=== PATIENT | female | born 1960 | race Caucasian/White ===

== ENCOUNTER 2019-09-26 08:24 | Day surgery (SDC) | payer OTHER ==
[2019-09-26] MEDS ORDERED: Midazolam 1 MG/ML 2 ML SDV ONE (08:53)
[2019-09-26] MEDS ORDERED: fentaNYL 100 MCG/2 ML SDV ONE (08:53)
[2019-09-26] MEDS ORDERED: Propofol 200 MG/20 ML SDV ONE (08:54)
[2019-09-26] MEDS ORDERED: Dextrose 5%-Lactated Ringers 1,000 ML IV SCH (09:00)
--- NOTE | 2019-09-29 11:25 | OR ---
DATE OF PROCEDURE: 09/26/2019 SURGEON: Vignesh Brown MD PREOPERATIVE DIAGNOSIS: Indication for screening colonoscopy. POSTOPERATIVE DIAGNOSIS: Single flat/sessile polyp involving hepatic flexure colon. OPERATIVE PROCEDURE: Colonoscopy with: 1. Polypectomy by snare technique. 2. Injection of Li ink into small bowel submucosa to identify polypectomy site. ANESTHESIA: IV sedation. INDICATIONS FOR PROCEDURE: A 59-year-old female presenting for a screening colonoscopy. Plan is to proceed with a colonoscopy with biopsies and/or polypectomy as indicated. Potential risks of the procedure including bleeding and perforation were discussed, and the patient wishes to proceed. DETAILS OF PROCEDURE: The patient was taken to the operating room and placed in a left lateral decubitus position. IV sedation was administered, after which the initial digital rectal exam was performed and was unremarkable. Colonoscope was then passed eventually to the level of the cecum. The prep was fairly good with there only a small amount of liquid stool present. To that level, there were no diverticula and no areas of colitis. There was a single area of fairly sessile-appearing polyp located in the hepatic flexure. This was encircled and then taken in 2 pieces with cautery snare. Both pieces were collected and sent for histologic evaluation. The polypectomy site appeared to be not overly deep and adequate in terms of hemostasis. In the event this is a malignancy, 2 mL of Li Ink was then injected in the submucosa adjacent to the biopsy site for intraoperative confirmation of that location of the colon should resection be required. The scope was then withdrawn in remainder of the length of the colon and rectum with no additional pathology being identified and the procedure was then concluded. The patient was taken to the recovery room in satisfactory condition. Assuming this is an otherwise benign polyp, it appeared to be adequately excised, and in this case we would recommend a repeat colonoscopy in 2 years. Vignesh Brown MD /[id number]
== END 2019-09-26 11:55 | disposition home or self-care (01) ==
LOC: JP.SDS 08:24
PROVIDERS: ATTEND Surgery
DX: Z12.11 Encounter for screening for malignant neoplasm of colon (principal); D12.3 Benign neoplasm of transverse colon; Z87.891 Personal history of nicotine dependence
CPT/HCPCS: 45381; 45385; 88305; J2250; J2704; J3010; J7121

== ENCOUNTER 2021-07-06 18:17 | Emergency (ER) | payer OTHER ==
[2021-07-06] MEDS ORDERED: Bacitracin Oint 1 GM U/D Packet TOP ONE (18:29)
[2021-07-06] MEDS ORDERED: Diphtheria,Pertussis(Acell),Tetanus Vaccine 0.5 ML Syringe IM ONE (18:49)
--- NOTE | 2021-07-06 18:49 | EDM.PDOC ---
ED HPI GENERAL MEDICAL PROBLEM - General Chief Complaint: Laceration Stated Complaint: GASH IN FORHEAD Time Seen by Provider: 07/06/21 18:29 Source of Information: Reports: Patient History Limitations: Reports: No Limitations - History of Present Illness INITIAL COMMENTS - FREE TEXT/NARRATIVE: Frida is a 61-year-old female presenting to the ED for evaluation and treatment of a laceration to her forehead. Patient was helping her hang a deer when the mechanism failed causing the wench to strike her in the forehead resulting in the laceration. There was no loss of consciousness. - Related Data Allergies Allergy/AdvReac Type Severity Reaction Status Date / Time amoxicillin [Amoxicillin] Allergy Severe Anaphylactic Verified 07/06/21 18:33 Shock cephalexin [From Keflex] Allergy Rash Verified 07/06/21 18:33 naproxen sodium [From Aleve] Allergy Hives Verified 07/06/21 18:33 Past Medical History HEENT History: Reports: Impaired Vision Respiratory History: Reports: Bronchitis, Recurrent Gastrointestinal History: Reports: None Musculoskeletal History: Reports: Other (See Below) Other Musculoskeletal History: back spasms - takes flexeril - Infectious Disease History Infectious Disease History: Reports: Chicken Pox, Measles - Past Surgical History HEENT Surgical History: Reports: None Respiratory Surgical History: Reports: None GI Surgical History: Reports: Cholecystectomy, Colonoscopy Musculoskeletal Surgical History: Reports: Other (See Below) Other Musculoskeletal Surgeries/Procedures:: removed part of ulnar and has plate in right wrist Social & Family History - Family History Family Medical History: No Pertinent Family History - Caffeine Use Caffeine Use: Reports: Coffee Caffeine Use Comment: 8 cups/daily ED ROS GENERAL - Review of Systems Review Of Systems: See Below Constitutional: Reports: No Symptoms HEENT: Reports: Other (Laceration on the left eyebrow measuring 3.3 cm) Musculoskeletal: Reports: No Symptoms. Denies: Neck Pain Skin: Reports: Wound (3.3 cm laceration left eyebrow) Neurological: Reports: No Symptoms ED EXAM, SKIN/RASH Exam: See Below Exam Limited By: No Limitations General Appearance: Alert, No Apparent Distress Eye Exam: Left Eye: Periorbital Changes (Ecchymosis of the upper eyelid) Neck: Other (3.3 cm stellate laceration of the left eyebrow) Neurological: Alert, Oriented, Normal Cognition, No Motor/Sensory Deficits ED SKIN PROCEDURES - Laceration/Wound Repair Left Face Appearance: Muscle (Left eyebrow) Distal NVT: Neuro & Vascular Intact Anesthetic Type: Local Local Anesthesia - Lidocaine (Xylocaine): 1% with EPI Local Anesthetic Volume: 2cc Skin Prep: Other (Soap and water) Exploration/Debridement/Repair: Wound Explored, In a Bloodless Field, Explored to Base Closed with: Sutures Lac/Wound length In cm: 3.3 Suture Size: 4-0 # of Sutures: 11 Suture Type: Nylon, Interrupted Sterile Dressing Applied: Nurse Tetanus Status Addressed: Yes Complications: No Course - Vital Signs Last Recorded V/S: Last Vital Signs Temp 36.7 C 07/06/21 18:35 Pulse 69 07/06/21 18:35 Resp 20 07/06/21 18:35 BP 171/74 H 07/06/21 18:35 Pulse Ox 94 L 07/06/21 18:35 - Orders/Labs/Meds Orders: Active Orders 24 hr Category Date Time Status Vaccine to be Administered/Admin Charge [RC] ASDIRECTED Care 07/06/21 18:49 Active Diphth,Pertuss(Acell),Tet Vac [Boostrix] Med 07/06/21 18:49 Once 0.5 ml IM .ONCE ONE Medication Orders Diphtheria/Tetanus/Acell Pertussis (Diphtheria,Pertussis(Acell),Tetanus Vaccine 0.5 Ml Syringe) 0.5 ml IM .ONCE ONE Stop: 07/06/21 18:50 Meds: Medications Generic Name Dose Route Start Last Admin Trade Name Freq PRN Reason Stop Dose Admin Diphtheria/Tetanus/Acell Pertussis 0.5 ml 07/06/21 18:49 Diphtheria,Pertussis(Acell),Tetanus Vaccine 0.5 Ml Syringe IM 07/06/21 18:50 .ONCE ONE Discontinued Medications Generic Name Dose Route Start Last Admin Trade Name Freq PRN Reason Stop Dose Admin Bacitracin 1 dose 07/06/21 18:29 Bacitracin Oint 1 Gm U/D Packet TOP 07/06/21 18:30 ONETIME ONE - Re-Assessments/Exams Free Text/Narrative Re-Assessment/Exam: 07/06/21 18:52 I realigned multiple flaps from the stellate laceration closing the wound with 4-0 Ethilon requiring 11 simple interrupted sutures. The sutures will need to be removed in 5 days which can be done at the clinic. Departure - Departure Time of Disposition: 18:53 Disposition: Home, Self-Care 01 Clinical Impression: Laceration of eyebrow, left Qualifiers: Encounter type: initial encounter Qualified Code(s): S01.112A - Laceration without foreign body of left eyelid and periocular area, initial encounter - Discharge Information Instructions: Laceration Care, Adult, Sutures, Elver, or Adhesive Wound Closure, [id number] Referrals: Joanna Chowdary DO [Primary Care Provider] - Forms: ED Department Discharge Care Plan Goals: There are 11 sutures had been placed in your left eyebrow to bring multiple flaps from the stellate laceration back together. Please keep the wound clean and dry for the next 24 hours. Apply a light coating of bacitracin to the wound twice daily for the next 5 days. The sutures will need to be removed in 5 days to prevent railroad and of the wound. Wounds in the forehead and face area are extremely rare to become infected because of the very vascular nature of the skin of the face, however, if any signs of infection begin please let us know so we can start antibiotics right away. Ice will help reduce the swelling. You will likely have bruising of the periorbital space which is already started because of blood going into the soft tissue. You may take Tylenol if you develop a headache or for any pain. After 24 hours you may take ibuprofen or Aleve. Sepsis Event Note (ED) - Focused Exam Vital Signs: Vital Signs Temp Pulse Resp BP Pulse Ox 07/06/21 18:35 36.7 C 69 20 171/74 H 94 L 07/06/21 18:34 36.7 C 171 H 16 171/74 H 94 L - Problem List & Annotations (1) Laceration of eyebrow, left SNOMED Code(s): 86608528814130253 Code(s): S01.112A - LACERATION W/O FB OF LEFT EYELID AND PERIOCULAR AREA, INIT Status: Acute Priority: Medium Current Visit: Yes Qualifiers: Encounter type: initial encounter Qualified Code(s): S01.112A - Laceration without foreign body of left eyelid and periocular area, initial encounter - Problem List Review Problem List Initiated/Reviewed/Updated: Yes - My Orders Last 24 Hours: My Active Orders 07/06/21 18:49 Vaccine to be Administered/Admin Charge [RC] ASDIRECTED Diphth,Pertuss(Acell),Tet Vac [Boostrix] 0.5 ml IM .ONCE ONE - Assessment/Plan Last 24 Hours: My Active Orders 07/06/21 18:49 Vaccine to be Administered/Admin Charge [RC] ASDIRECTED Diphth,Pertuss(Acell),Tet Vac [Boostrix] 0.5 ml IM .ONCE ONE
== END 2021-07-06 19:20 | disposition home or self-care (01) ==
LOC: JP.ED 18:17
DX: S01.112A Laceration without foreign body of left eyelid and periocular area, initial encounter (principal); Z88.0 Allergy status to penicillin; Z88.1 Allergy status to other antibiotic agents; Z88.5 Allergy status to narcotic agent; Z23 Encounter for immunization; W22.09XA Striking against other stationary object, initial encounter
CPT/HCPCS: 12013; 90471; 90715; 99282-25

== ENCOUNTER 2021-10-04 08:34 | Day surgery (SDC) | payer OTHER ==
[~2021-10-04 08:34] MED LIST: Midazolam 1 MG/ML 2 ML SDV ONE; Propofol 200 MG/20 ML SDV ONE; fentaNYL 100 MCG/2 ML SDV ONE
[2021-10-04] MEDS ORDERED: Dextrose 5%-Lactated Ringers 1,000 ML IV SCH (09:15)
== END 2021-10-04 12:40 | disposition home or self-care (01) ==
LOC: JP.SDS 08:34
PROVIDERS: ATTEND Surgery
DX: Z12.11 Encounter for screening for malignant neoplasm of colon (principal); K57.30 Diverticulosis of large intestine without perforation or abscess without bleeding; K64.9 Unspecified hemorrhoids; Z86.010 Personal history of colon polyps; G47.33 Obstructive sleep apnea (adult) (pediatric)
CPT/HCPCS: 45378; J2250; J2704; J3010; J7121